=== PATIENT | male | born 1950 | race Caucasian/White ===

== ENCOUNTER → 2018-09-14 10:41 | Outpatient (CLI) | payer MEDICARE, OTHER | END | disposition home or self-care (01) | LOC: D.RAD 10:41 | DX: M25.511 Pain in right shoulder (principal); M54.10 Radiculopathy, site unspecified ==

== ENCOUNTER → 2018-10-07 14:27 | Outpatient (CLI) | payer MEDICARE, OTHER | END | disposition home or self-care (01) | LOC: D.MRI 14:27 | DX: M25.551 Pain in right hip (principal) ==

== ENCOUNTER → 2019-03-05 07:43 | Outpatient (CLI) | payer MEDICARE, OTHER | END | disposition home or self-care (01) | LOC: D.US 07:43 | PROVIDERS: ATTEND Otolaryngology | DX: E04.2 Nontoxic multinodular goiter (principal); E04.1 Nontoxic single thyroid nodule ==